=== PATIENT | female | born 1930 | race Caucasian/White ===

== ENCOUNTER 2018-03-05 13:54 | Emergency (ER) | payer BC ==
[2018-03-05 14:07] VITALS: BP 140/80; PULSE 80; TEMP 97.4; BMI 26.5
[2018-03-05] MEDS ORDERED: DIPHTH,PERTUSS(ACELL),TET 0.5 ML DISP.SYRIN IM ONE (14:22)
--- NOTE | 2018-03-05 14:35 | PDOC ---
History of Present Illness - General History Source: Patient Exam Limitations: No Limitations <Yusuf Calderon - Last Filed: 03/05/18 14:51> - History of Present Illness Initial Comments: 03/05/18 14:58 The patient is a 88 year old female, with a significant PMH of atrial fibrillation (on Xarelto), COPD, hypertension, hyperlipidemia, hypothyroidism, who presents to the emergency department with left hand injury. The patient states she is unsure when the left hand injury occurred or what the cut on her left hand is from. However, the patient states she noticed progressively worsening bruising surrounding the left hand injury since yesterday which prompted the ED visit today. The patient states she is unsure of the date of her last tetanus shot. She denies any recent numbness, loss of sensation. The patient denies chest pain, shortness of breath, headache and dizziness. Denies fever, chills, nausea, vomit, diarrhea and constipation. Denies dysuria, frequency, urgency and hematuria. Allergies: NKA Past surgical history: Pacemaker insertion PCP: Dr.Louis Lynn Food Cart Attendant: Dr. Diehl <Dmitry Chilel - Last Filed: 03/05/18 15:20> - General Chief Complaint: Injury Stated Complaint: LEFT HAND INJURY Time Seen by Provider: 03/05/18 14:01 Past History - Past Medical History Anemia: No Asthma: No Cancer: No Cardiac Disorders: Yes (PACEMAKER, A F-B) CVA: No COPD: Yes (EMPHYSEMA) CHF: No Dementia: No Diabetes: No Dialysis: No GI Disorders: Yes Disorders: No HTN: Yes Hypercholesterolemia: Yes Liver Disease: No Seizures: No Thyroid Disease: (HYPOTHYROID) - Surgical History Abdominal Surgery: No Appendectomy: Yes Cardiac Surgery: Yes (PACEMAKER INSERTION) Cholecystectomy: No Lung Surgery: No Neurologic Surgery: No Orthopedic Surgery: No - Suicide/Smoking/Psychosocial Hx Smoking Status: No Smoking History: Former smoker Years of Tobacco Use: 60 Have you smoked in the past 12 months: No Number of Cigarettes Smoked Daily: 20 If you are a former smoker, when did you quit?: 5 YRS AGO Information on smoking cessation initiated: No Hx Alcohol Use: No Drug/Substance Use Hx: No Substance Use Type: None Hx Substance Use Treatment: No <Yusuf Calderon - Last Filed: 03/05/18 14:51> <Dmitry Chilel - Last Filed: 03/05/18 15:20> - Past Medical History Allergies/Adverse Reactions: Allergies Allergy/AdvReac Type Severity Reaction Status Date / Time No Known Allergies Allergy Verified 03/05/18 14:01 Home Medications: Ambulatory Orders Aspirin Coated [Ecotrin -] 81 mg PO DAILY 04/28/12 Metoprolol Tartrate [Lopressor -] 25 mg PO DAILY 04/28/12 Rivaroxaban [Xarelto -] 20 mg PO HS 05/07/12 Furosemide [Lasix -] 20 mg PO DAILY 08/08/14 Simvastatin [Zocor -] 20 mg PO DAILY 02/01/15 Amlodipine Besylate 5 mg PO DAILY 07/05/15 Multivitamins [Multivit ([facility] Formulary)] 1 tab PO DAILY 10/20/15 Acetaminophen [Tylenol] 650 mg PO Q6H #30 tablet 06/30/16 Oxycodone HCl/Acetaminophen [Percocet 5-325 mg Tablet] 1 tab PO Q6H PRN #6 tablet MDD 3 09/01/16 Review of Systems - Review of Systems Comments:: 03/05/18 14:59 GENERAL/CONSTITUTIONAL: No fever or chills. No weakness. HEAD, EYES, EARS, NOSE AND THROAT: No change in vision. No ear pain or discharge. No sore throat. CARDIOVASCULAR: No chest pain or shortness of breath. RESPIRATORY: No cough, wheezing, or hemoptysis. GASTROINTESTINAL: No nausea, vomiting, diarrhea or constipation. GENITOURINARY: No dysuria, frequency, or change in urination. MUSCULOSKELETAL: No joint or muscle swelling or pain. No neck or back pain. SKIN: +Left hand laceration and bruising. NEUROLOGIC: No headache, vertigo, loss of consciousness, or change in strength/ sensation. ENDOCRINE: No increased thirst. No abnormal weight change. HEMATOLOGIC/LYMPHATIC: No anemia, easy bleeding, or history of blood clots. ALLERGIC/IMMUNOLOGIC: No hives or skin allergy. <Dmitry Chilel - Last Filed: 03/05/18 15:20> *Physical Exam - Vital Signs Last Vital Signs Temp Pulse Resp BP Pulse Ox 97.4 F L 80 16 140/80 97 03/05/18 13:55 03/05/18 13:55 03/05/18 13:55 03/05/18 13:55 03/05/18 13:55 <Yusuf Calderon - Last Filed: 03/05/18 14:51> - Vital Signs Last Vital Signs Temp Pulse Resp BP Pulse Ox 97.4 F L 80 16 140/80 97 03/05/18 13:55 03/05/18 13:55 03/05/18 13:55 03/05/18 13:55 03/05/18 13:55 - Physical Exam Comments: 03/05/18 15:17 GENERAL: Awake, alert, and fully oriented, in no acute distress HEAD: No signs of trauma EYES: PERRLA, EOMI, sclera anicteric, conjunctiva clear ENT: Auricles normal inspection, hearing grossly normal, nares patent, oropharynx clear without exudates. Moist mucosa NECK: Normal ROM, supple, no lymphadenopathy, JVD, or masses LUNGS: Breath sounds equal, clear to auscultation bilaterally. No wheezes, and no crackles HEART: Regular rate and rhythm, normal S1 and S2, no murmurs, rubs or gallops ABDOMEN: Soft, nontender, normoactive bowel sounds. No guarding, no rebound. No masses EXTREMITIES: Normal range of motion, no edema. No clubbing or cyanosis. No cords, erythema, or tenderness NEUROLOGICAL: Cranial nerves II through XII grossly intact. Normal speech, normal gait SKIN: +Diffuse ecchymosis on the dorsum of the left hand. +Very superficial laceration and abrasion approx. 1 cm on the dorsum of the left hand. Median, radial, ulnar distribution intact. 2+ radial pulse. +Tenderness elicited along the ecchymosis. No wrist tenderness. <Dmitry Chilel - Last Filed: 03/05/18 15:20> ED Treatment Course - RADIOLOGY Radiology Studies Ordered: Category Date Time Status HAND- LEFT [RAD] Stat Radiology 03/05/18 14:22 Ordered <Yusuf Calderon - Last Filed: 03/05/18 14:51> - RADIOLOGY Radiograph Interpretation: 03/05/18 15:05 EXAM#: TYPE/EXAM: RESULT: [id number] RAD/HAND- LEFT Status post injury X-ray of the left. There is evidence of osteopenia. Moderate to marked degenerative changes involving the first carpometacarpal joint as well as moderate osteoarthritic changes involving the joint between the scaphoid bone and the trapezium. [id number] osteoarthritic changes involving the distal interphalangeal joints. No gross acute fracture or dislocation are identified. There is no gross evidence of soft tissue swelling IMPRESSION: Osteopenia and osteoarthritic changes, as described above without gross evidence of a fracture or dislocation. Reported By: Cliff Valdivia MD - Medications Given in the ED: ED Medications Discontinued Medications Generic Name Dose Route Start Last Admin Trade Name Freq PRN Reason Stop Dose Admin Diphtheria/Tetanus/Acell Pertussis 0.5 ml 03/05/18 14:22 03/05/18 14:43 Boostrix - IM 03/05/18 14:23 0.5 ml .ONCE ONE Administration <Dmitry Chilel - Last Filed: 03/05/18 15:20> Medical Decision Making - Medical Decision Making 03/05/18 14:30 A portion of this note was documented by scribe services under my direction. I have reviewed the details of the note, within reason, and agree with the documentation with the following case summary and management plan written by me. Patient treated in the ED. Nursing notes are reviewed and incorporated into the medical decision-making. Vital signs reviewed. Peripheral IV access obtained by the nurse, laboratory studies are drawn and sent, reviewed and interpreted by myself. Vital Signs Temp Pulse Resp BP Pulse Ox 97.4 F L 80 16 140/80 97 03/05/18 13:55 03/05/18 13:55 03/05/18 13:55 03/05/18 13:55 03/05/18 13:55 88-year-old female with past medical history of pacemaker, atrial fibrillation on Xarelto, COPD, hypertension, hyperlipidemia, hypothyroidism presents with left hand injury. Yesterday, the patient was unsure of what hand injury she had. She noted that she had a small abrasion and superficial laceration to the dorsum left hand approximately 1 cm in length. Today, noted that she had diffuse bruising everywhere and pain so came to the ER. Denies any numbness and weakness. Last tetanus shot is unknown. The wound is greater than 24 hours old. Plus it is all superficial. We'll defer on suturing at this time. At this time, it is not infected. We'll give a tetanus booster. Left hand x-ray and reassess. 03/05/18 14:52 Radiograph reviewed by me, pending official radiology read. No fractures. Supportive care. Hand elevation. I advised the patient that the hand will look worse (ecchymosis) before it gets better. Pt understands. Will go home with . I discussed the physical exam findings, ancillary test results and final diagnoses with the patient. I answered all of the patient's questions. The patient was satisfied with the care received and felt comfortable with the discharge plan and treatment plan. The patient will call their primary care physician within 24 hours to arrange follow-up and will return to the Emergency Department with any new, persistant or worsening symptoms. <Yusuf Calderon - Last Filed: 03/05/18 14:51> *DC/Admit/Observation/Transfer - Discharge Dispostion Admit: No <Yusuf Calderon - Last Filed: 03/05/18 14:51> - Attestations Scribe Attestion: 03/05/18 14:59 Documentation prepared by Dmitry Chilel, acting as medical claims assistant for Yusuf Calderon MD. <Dmitry Chilel - Last Filed: 03/05/18 15:20> Diagnosis at time of Disposition: Hand pain - Discharge Dispostion Disposition: HOME Condition at time of disposition: Good - Referrals Referrals: Lexy Lynn [Primary Care Provider] - - Patient Instructions Printed Discharge Instructions: DI for Hand Pain Additional Instructions: You had received a tetanus booster today. Take 650 mg tylenol every 4 hours as needed for pain. Your preliminary xray ready is negative for fracture in your hand. It may take days to weeks before the bruising resolves. Please call your doctor to inform him/her that you had a visit to the ER. - Post Discharge Activity
== END 2018-03-05 15:02 | disposition home or self-care (01) ==
LOC: FER 13:54
PROC: 3E0234Z Introduction of Serum, Toxoid and Vaccine into Muscle, Percutaneous Approach (ICD-10-PCS; principal; 2018-03-05)
DX: M79.641 Pain in right hand (principal); I48.91 Unspecified atrial fibrillation; J44.9 Chronic obstructive pulmonary disease, unspecified; I10 Essential (primary) hypertension; E78.5 Hyperlipidemia, unspecified; E03.9 Hypothyroidism, unspecified; Z95.0 Presence of cardiac pacemaker; Z87.891 Personal history of nicotine dependence
CPT/HCPCS: 73130-TC-LR-FY; 90715; 99282-25